=== PATIENT | female | born 1980 | race Caucasian/White ===

== ENCOUNTER 2024-08-01 09:01 | Inpatient (IN) | payer OTHER ==
[2024-08-01 11:05] LABS: BASO % 0.7 % (0-2.0); EOS % 0.7 % (0-4.5); HEMATOCRIT 29.9 % (32.4-45.2); HEMOGLOBIN 9.1 GM/dL (10.7-15.3); LYMPH % 9.7 % (8-40); MCH 21.9 pg (25.7-33.7); MCHC 30.3 g/dl (32.0-36.0); MEAN CELL VOLUME 72.2 fl (80-96); MEAN PLT VOLUME 8.1 fl (7.5-11.1); NEUT % 79.9 % (42.8-82.8); PLATELET COUNT 278 10^3/uL (134-434); RBC 4.14 M/mm3 (3.60-5.2); RDW 17.6 % (11.6-15.6); WHITE BLOOD COUNT 9.5 K/mm3 (4.0-10.0)
[2024-08-01 11:07] LABS: PH,URINE 6.5 (5.0-8.0); URINE APPEARANCE CLEAR; URINE BILIRUBIN NEGATIVE (NEGATIVE); URINE COLOR YELLOW; URINE GLUCOSE (UA) NEGATIVE (NEGATIVE); URINE KETONE NEGATIVE (NEGATIVE); URINE LEUK ESTERASE NEGATIVE (NEGATIVE); URINE NITRITE NEGATIVE (NEGATIVE); URINE PROTEIN NEGATIVE (NEGATIVE); URINE UROBILINOGEN 0.2 mg/dL (0.2-1.0)
[2024-08-01 11:14] LABS: INR 1.25 (0.83-1.09); PROTHROMBIN TIME (PATIENT) 14.3 SEC (9.7-13.0)
[2024-08-01 11:16] LABS: ACTIVATED PTT 34.6 SECONDS (25.2-36.5)
[2024-08-01 12:18] LABS: POTASSIUM 4.2 mmol/L (3.5-5.1)
[2024-08-01 12:19] LABS: CALCIUM 8.8 mg/dL (8.5-10.1)
[2024-08-01 12:20] LABS: ALBUMIN 3.1 g/dl (3.4-5.0); BLOOD UREA NITROGEN 14.4 mg/dL (7-18)
[2024-08-01] MEDS ORDERED: PIPERACILLIN/TAZOB 4.5 GM 4.5 GM/100 ML BAG IVPB ONE (12:20)
[2024-08-01 12:21] LABS: MAGNESIUM 1.9 mg/dL (1.8-2.4)
[2024-08-01 12:23] LABS: CREATININE 0.7 mg/dL (0.55-1.3)
[2024-08-01 12:24] LABS: BILIRUBIN,TOTAL 0.7 mg/dL (0.2-1); TOT PROT 6.5 g/dl (6.4-8.2)
[2024-08-01] MEDS: PIPERACILLIN/TAZOB 4.5 GM 4.5 GM in DEXTROSE 5%-WATER 100 ML IVPB ONE (12:29)
[2024-08-01 12:38] LABS: ANISOCYTOSIS 2+; MACROCYTOSIS 0
[2024-08-01] MEDS ORDERED: CEFEPIME HCL/D5W 2 GM/50 ML BAG IVPB ONE (12:50)
[2024-08-01] MEDS ORDERED: VANCOMYCIN 1 GM PREMIX (F) 1 GM/200 ML BAG ONE (13:39)
[2024-08-01] MEDS: CEFEPIME HCL/D5W 2 GM/50 ML BAG IVPB ONE (13:48)
[2024-08-01] MEDS: VANCOMYCIN 1,000 MG in DEXTROSE 5%-WATER - 250 ML IVPB ONE (14:13)
[2024-08-01] MEDS: SODIUM CHLORIDE 0.9% 500 ML INFUS.BAG IV ONE (15:27)
[2024-08-01] MEDS ORDERED: AMIODARONE IN DEXTROSE,ISO-OSM 150 MG/100 ML BAG ONE (15:34)
[2024-08-01] MEDS ORDERED: AMIODARONE IN DEXTROSE,ISO-OSM 360 MG/200 ML BAG ONE (15:34)
[2024-08-01] MEDS: AMIODARONE IN DEXTROSE,ISO-OSM 150 MG/100 ML BAG IVPB ONE (16:05)
[2024-08-01] MEDS: AMIODARONE IN DEXTROSE,ISO-OSM 360 MG/200 ML BAG IV SCH ×2 (16:18→20:54)
[2024-08-01 19:39] VITALS: BMI 24.3
[2024-08-02] MEDS: guaiFENesin 200 MG/10 ML 10 ML UNIT-DOSE CUPS PO PRN ×3 (06:45→17:25)
[2024-08-02 07:59] LABS: EOS % 2.7 % (0-4.5); HEMATOCRIT 26.3 % (32.4-45.2); HEMOGLOBIN 7.9 GM/dL (10.7-15.3); LYMPH % 19.2 % (8-40); MCHC 30.3 g/dl (32.0-36.0); MEAN CELL VOLUME 72.7 fl (80-96); MEAN PLT VOLUME 8.8 fl (7.5-11.1); MONO % 12.2 % (3.8-10.2); NEUT % 64.9 % (42.8-82.8); PLATELET COUNT 246 10^3/uL (134-434); RBC 3.61 M/mm3 (3.60-5.2); RDW 17.5 % (11.6-15.6); WHITE BLOOD COUNT 7.9 K/mm3 (4.0-10.0)
[2024-08-02 08:14] LABS: POTASSIUM 4.3 mmol/L (3.5-5.1)
[2024-08-02 08:16] LABS: ALBUMIN 2.6 g/dl (3.4-5.0); BLOOD UREA NITROGEN 11.1 mg/dL (7-18); CALCIUM 8.1 mg/dL (8.5-10.1)
[2024-08-02 08:19] LABS: CREATININE 0.7 mg/dL (0.55-1.3)
[2024-08-02 08:21] LABS: BILIRUBIN,TOTAL 0.4 mg/dL (0.2-1); TOT PROT 5.4 g/dl (6.4-8.2)
[2024-08-02] MEDS: ENOXAPARIN NA (PORCINE) 40 MG/0.4 ML DISP.SYRIN SQ SCH (09:04)
[2024-08-02] MEDS: AMIODARONE HCL 200 MG TABLET PO SCH (10:54)
[2024-08-02] MEDS ORDERED: INSULIN ASPART SLIDING SCALE (NOVOLOG) 1 VIAL SQ SCH (11:00)
[2024-08-02] MEDS ORDERED: BENZOCAINE/MENTH/CETYLPYRD CL 1 EACH LOZENGE MM PRN (17:08)
[2024-08-02] MEDS: ACETAMINOPHEN 325 MG TABLET (FP) PO PRN (17:26)
[2024-08-02] MEDS ORDERED: MELATONIN 5 MG TABLETS PO PRN (19:34)
[2024-08-02] MEDS: BENZONATATE 200 MG CAPSULE PO PRN (21:38)
[2024-08-03 07:10] LABS: HEMATOCRIT 27.8 % (32.4-45.2); HEMOGLOBIN 8.5 GM/dL (10.7-15.3); MCH 22.1 pg (25.7-33.7); MCHC 30.6 g/dl (32.0-36.0); MEAN CELL VOLUME 72.4 fl (80-96); MEAN PLT VOLUME 8.1 fl (7.5-11.1); PLATELET COUNT 282 10^3/uL (134-434); RBC 3.84 M/mm3 (3.60-5.2); RDW 17.8 % (11.6-15.6); WHITE BLOOD COUNT 7.3 K/mm3 (4.0-10.0)
[2024-08-03 07:24] LABS: POTASSIUM 4.2 mmol/L (3.5-5.1)
[2024-08-03 07:28] LABS: BLOOD UREA NITROGEN 10.7 mg/dL (7-18); CALCIUM 8.5 mg/dL (8.5-10.1)
[2024-08-03 07:32] LABS: CREATININE 0.6 mg/dL (0.55-1.3)
[2024-08-03] MEDS: ENOXAPARIN NA (PORCINE) 40 MG/0.4 ML DISP.SYRIN SQ SCH (09:25)
[2024-08-03] MEDS: AMIODARONE HCL 200 MG TABLET PO SCH (09:25)
[2024-08-03] MEDS: ASPIRIN COATED 81 MG TABLET.EC PO SCH (10:43)
[2024-08-03] MEDS: PANTOPRAZOLE 40 MG TABLET PO SCH (10:43)
[2024-08-03] MEDS: FUROSEMIDE 20 MG TABLET (FP) PO SCH (10:43)
[2024-08-03] MEDS: BENZONATATE 200 MG CAPSULE PO SCH (11:41)
[2024-08-03] MEDS: NAPROXEN 250 MG TABLET PO SCH (11:41)
[2024-08-03] MEDS: CODEINE SO4 30 MG TABLET PO PRN (17:28)
[2024-08-04 08:18] LABS: HEMATOCRIT 27.8 % (32.4-45.2); HEMOGLOBIN 8.5 GM/dL (10.7-15.3); MCH 21.9 pg (25.7-33.7); MCHC 30.6 g/dl (32.0-36.0); MEAN CELL VOLUME 71.6 fl (80-96); PLATELET COUNT 318 10^3/uL (134-434); RBC 3.88 M/mm3 (3.60-5.2); RDW 17.4 % (11.6-15.6); WHITE BLOOD COUNT 5.8 K/mm3 (4.0-10.0)
[2024-08-04 08:37] LABS: POTASSIUM 4.4 mmol/L (3.5-5.1)
[2024-08-04 08:52] LABS: ALBUMIN 2.8 g/dl (3.4-5.0); CALCIUM 8.3 mg/dL (8.5-10.1)
[2024-08-04 08:53] LABS: BLOOD UREA NITROGEN 11.6 mg/dL (7-18)
[2024-08-04 08:56] LABS: CREATININE 0.7 mg/dL (0.55-1.3)
[2024-08-04 08:57] LABS: BILIRUBIN,TOTAL 0.5 mg/dL (0.2-1); TOT PROT 5.8 g/dl (6.4-8.2)
[2024-08-04 09:38] VITALS: BP 96/64; PULSE 90; RESP 17; TEMP 98.1
[2024-08-04] MEDS: POTASSIUM CHLORIDE TABS 20 MEQ TABLET.ER (FP) PO SCH (09:39)
== END 2024-08-04 14:17 | disposition home or self-care (01) | DRG 201 ==
LOC: JER 09:01 → JERBED 12:15 → JICU 18:45 → J4S 08-02 17:46
PROVIDERS: ATTEND Internal Medicine
DX: I48.0 Paroxysmal atrial fibrillation (principal); I31.39 Other pericardial effusion (noninflammatory); J90 Pleural effusion, not elsewhere classified; I95.9 Hypotension, unspecified; K21.9 Gastro-esophageal reflux disease without esophagitis; D50.9 Iron deficiency anemia, unspecified; J06.9 Acute upper respiratory infection, unspecified; R07.81 Pleurodynia; R07.89 Other chest pain; Z87.74 Personal history of (corrected) congenital malformations of heart and circulatory system
CPT/HCPCS: 0241U-QW; 36415; 71045-TC-FY; 71275-TC; 76604; 80048; 80053; 81003; 82607; 82728; 82746; 83540; 83550; 83605; 83735; 83880; 84443; 84484; 85025; 85027; 85610; 85730; 86850; 86900; 86901; 87040; 87086; 87481; 87899; 93005; 93010; 93306-TC; 93308; 99285-25; J0282